=== PATIENT | male | born 1970 | race Caucasian/White ===

== ENCOUNTER 2017-11-02 05:28 | Day surgery (SDC) | payer BC ==
[~2017-11-02] VITALS: Ht 170.2 cm; Wt 75.3 kg
--- NOTE | ~2017-11-02 | S ---
[facility] [place] [address] SURGICAL PATH RPT PROCEDURE Name: JEFF ANG Room #: DEP [facility].#: [id number] Admission: 11/02/17 Date of : 68 Discharge: 11/02/17 Report #: [id number] Path Case #: [id number] PATHOLOGY REPORT COLLECTION DATE: 11/02/2017 RECEIVED DATE: 11/02/2017 SUBMITTING PHYS: Dr. Cedric Hinds OTHER PHYS: Dr. Humberto Flores SPECIMEN(S) RECEIVED: A.Basal cell cercinoma right lower eyelid * * * * * * * * * * * * FINAL DIAGNOSIS: A. Basal cell carcinoma right lower eyelid: - RESIDUAL BASAL CELL CARCINOMA, FOCAL. - Margins are negative for tumor. PATHOLOGIST: Jeff Jarvis M.D. REPORT ELECTRONICALLY SIGNED BY: Jeff Jarvis M.D. DATE/TIME: 11/04/2017 08:33 * * * * * * * * * * * * GROSS PATHOLOGY: Received fresh from the OR is a specimen labeled with the patient's name, medical record number and "Basal cell carcinoma right lower eyelid". The specimen consists of a wedge shaped portion of eyelid with eyelashes measuring 0.6 x 0.5 x 0.4 cm. The specimen is received oriented from the OR and is inked as follows: lateral margin - blue, inferior margin - black, and medial margin - green. The specimen is bivalved and entirely submitted for frozen section in one cassette labeled A1. (MAP:; 11/02/2017) FROZEN SECTION DIAGNOSIS: (Jeff Jarvis M.D.) A1FS. "Basal cell carcinoma right lower eyelid": - Margins negative for invasive tumor. These findings are discussed with Dr. Hinds on 11/02/17 at 2:08 p.m. Testing performed by [facility] at [facility] [address] [place] [address] CLINICAL HISTORY: History of basal cell carcinoma of the right lower eyelid [address] [place] [address] SURGICAL PATH RPT PROCEDURE Name: JEFF Theodora Room #: [facility].#: [id number] Admission: 11/02/17 Date of : 68 Discharge: 11/02/17 Report #: [id number] Path Case #: [id number] INITIAL CPT CODE(S): A; 49361, 77532 Professional services performed by [facility] at [place] [address] [address], [place] [address] [facility] at [address] [place] [address], [facility] [address] [address]. [facility] [address] [place] [address] PHONE: [phone] DIRECTOR: Moise Hernandez M.D. * * * END OF REPORT * * *
--- NOTE | ~2017-11-02 | O ---
[facility] [place] [address] OPERATIVE REPORT Name: PHILLIP ANG Room #: DEP [facility]..#: [id number] Admission: 11/02/17 Attend Phys: Cedric Hinds MD Discharge: 11/02/17 Date of : 68 Report #: [id number] THIS REPORT FOR: //name// CC: Humberto Flores MD [facility] Cedric Hinds DATE OF SERVICE: 11/02/2017 PREOPERATIVE DIAGNOSIS: Basal cell carcinoma of right lower lid. POSTOPERATIVE DIAGNOSIS: Basal cell carcinoma of right lower lid. PROCEDURE: Excision of basal cell carcinoma of right lower lid with frozen sections and myocutaneous flap repair of defect. SURGEON: Cedric Hinds MD. HOME HOSPICE AIDE: None. ANESTHESIA: MAC. COMPLICATIONS: None. INDICATIONS FOR SURGERY: This pleasant 47-year-old gentleman has a biopsy proven basal cell carcinoma in his right lower lid. He presents today for excision of the tumor with frozen sections and subsequent plastic repair of that defect. The informed consent was obtained to include but not limited to the potential risk for loss of vision, bleeding, infection, and need for additional surgery or treatment. DESCRIPTION OF PROCEDURE: The patient was taken to the operating room where 2% Xylocaine with epinephrine mixed with equal parts of 0.75% Marcaine with Wydase was administered transcutaneously and transconjunctivally to the right lower lid, the right lateral canthus and the right cheek. The patient was subsequently prepped and draped in the usual sterile fashion. A fine tip skin marking pen was then utilized to outline the lesion including 1-2 mm of normal appearing tissue. The incisions were then made perpendicularly across the eyelid margin and drawn down to a point in the premalar space. Hemostasis was achieved in the field with diligent pinpoint monopolar cautery. The specimen was oriented on a drawing for the waiting pathologist. He snap froze that specimen and found that there was indeed residual basal cell carcinoma present, but that the margins were clear. A myocutaneous flap was then developed to correct that defect. Hemostasis was [address] [address] OPERATIVE REPORT Name: PHILLIP ANG Room #: DEP [facility] M.R.#: [id number] Admission: 11/02/17 Attend Phys: Cedric Hinds MD Discharge: 11/02/17 Date of : 68 Report #: [id number] then re-achieved. The flap was then rotated medially to fill in the deficiency where it was secured with multiple interrupted buried 5-0 Vicryl sutures. The tarsal plate was reapproximated with interrupted 5-0 Vicryl sutures. The eyelid margin was reapproximated with interrupted 7-0 Vicryl sutures. The subcutaneous structures and the skin were then closed with interrupted buried 7-0 Vicryl sutures and 6-0 plain gut sutures in the skin. The wound was then cleaned and dressed with erythromycin ophthalmic ointment being applied. The patient was then transported to the recovery area having tolerated the procedures well with no anesthetic or operative complications being noted. <ELECTRONICALLY SIGNED> By: Cedric Hinds MD 11/09/17 0616 1414 1428 Cedric Hinds MD /nt
[~2017-11-02 05:28] MED LIST: AZOPT OPHTH1 %/10 M1 OPHTHALMIC; COMBIGAN EYE DR10 ML OPHTHALMIC; PRED FORTE 1% EY5 M1 OPHTHALMIC
[2017-11-02 13:20] VITALS: BP 108/80
== END 2017-11-02 16:30 | disposition home or self-care (01) ==
LOC: TBA 05:28 → OR 05:28
DX: C44.112 Basal cell carcinoma of skin of right eyelid, including canthus (principal); Z87.891 Personal history of nicotine dependence; Z85.828 Personal history of other malignant neoplasm of skin; Z98.41 Cataract extraction status, right eye; Z98.42 Cataract extraction status, left eye; Z98.890 Other specified postprocedural states
CPT/HCPCS: 50010; 50101; 50386; 50398; 51636; 56531; 62110; 62850; 70005